=== PATIENT | female | born 1975 | race Caucasian/White ===

== ENCOUNTER 2017-11-04 10:32 | Inpatient (IN) | payer OTHER ==
[~2017-11-04] VITALS: Ht 167.6 cm; Wt 122.8 kg
[~2017-11-04 10:32] MED LIST: BACTRIM,SEPT1 TABLET PO; CELEXA20 MG PO; CHANTIX0.5 MG PO; CILOSTAZOL100 MG PO; GLUCOPHAGE500 MG PO; LISINOPRIL10 MG PO; NEURONTIN800 MG PO; NOVOLOG 10100 UNITS/ SC; OMEGA 3 500 SO1 EACH PO; PERCOCET 5/31 TABLET PO; PRAVACHOL40 MG PO; ROBAXIN500 MG PO; TRESIBA FL100 UNIT/1 SC; ULTRAM50 MG PO; VENTOLIN HFA18 GM IH; XARELTO20 MG PO
[2017-11-04 11:29] VITALS: BP 148/70
[2017-11-04 16:30] LABS: HEMATOCRIT 39.9 % (36.0-46.0); HEMOGLOBIN 12.5 G/DL (11.9-15.5); MCH 25.8 PG (29.0-34.0); MCHC 31.3 G/DL (30.0-36.0); MCV 82.4 FL (83-99); PLATELET COUNT 310 K/uL (156-360); RBC DIS.WIDTH-CV 16.1 % (11.8-14.6); RBC DIS.WIDTH-SD 48.2 % (39-53); RED BLOOD COUNT 4.84 M/uL (3.80-5.20); WHITE BLOOD COUNT 16.2 K/uL (4.1-10.2)
[2017-11-04 16:52] LABS: CHLORIDE 106 MEQ/L (99-109); CREATININE 0.4 MG/DL (0.6-1.3); GFR ESTIMATE (CALCULATED) > 59 mL/min/; GLUCOSE 142 mg/dL (70-99); POTASSIUM 3.9 MEQ/L (3.7-5.4); SODIUM 136 MEQ/L (136-147); TROP-I INTERPRETATION NEGATIVE; TROPONIN-I < 0.01 ng/mL (0.0-0.30); UREA NITROGEN (BUN) 12 mg/dL (9-23)
[2017-11-04 18:29] VITALS: BP 140/80
[2017-11-04 20:15] VITALS: BP 188/84
[2017-11-05] VITALS (8 sets, daily range): BP systolic 119–195; BP diastolic 58–87
[2017-11-05 05:33] LABS: HEMOGLOBIN 12.7 G/DL (11.9-15.5); MCHC 31.8 G/DL (30.0-36.0); MCV 81.8 FL (83-99); PLATELET COUNT 317 K/uL (156-360); RBC DIS.WIDTH-CV 16.1 % (11.8-14.6); RBC DIS.WIDTH-SD 47.6 % (39-53); RED BLOOD COUNT 4.89 M/uL (3.80-5.20); WHITE BLOOD COUNT 17.3 K/uL (4.1-10.2)
[2017-11-05 05:49] LABS: TROP-I INTERPRETATION NEGATIVE; TROPONIN-I < 0.01 ng/mL (0.0-0.30)
[2017-11-05 06:10] LABS: CHLORIDE 101 MEQ/L (99-109); CREATININE 0.4 MG/DL (0.6-1.3); GFR ESTIMATE (CALCULATED) > 59 mL/min/; GLUCOSE 123 mg/dL (70-99); POTASSIUM 4.1 MEQ/L (3.7-5.4); SODIUM 135 MEQ/L (136-147); UREA NITROGEN (BUN) 11 mg/dL (9-23)
[2017-11-06] VITALS (8 sets, daily range): BP systolic 133–186; BP diastolic 60–82
[2017-11-07 04:06] VITALS: BP 146/68
[2017-11-07 07:39] VITALS: BP 144/69
[2017-11-07 10:53] VITALS: BP 130/59
[2017-11-07 16:43] VITALS: BP 102/55
[2017-11-07 19:28] VITALS: BP 113/53
[2017-11-07 23:15] VITALS: BP 143/65
[2017-11-08 04:07] VITALS: BP 136/69
[2017-11-08 07:59] VITALS: BP 157/71
[2017-11-08 11:31] VITALS: BP 129/64
[2017-11-08 15:22] VITALS: BP 117/53
[2017-11-08 23:23] VITALS: BP 154/67
[2017-11-09 07:46] VITALS: BP 152/68
[2017-11-09] MEDS ORDERED: OXYCODONE-APAP1 EACH PO (12:53)
== END 2017-11-09 15:20 | DRG 240 ==
LOC: SDC 10:32 → ENRESERV 16:02 → 2SOUTH 16:03 → 3EAST 16:03 → ENRESERV 16:13 → SDC 16:59 → 3EAST 17:45
PROVIDERS: Surgery
PROC: 0Y6D0Z3 Detachment at Left Upper Leg, Low, Open Approach (ICD-10-PCS; principal; 2017-11-04)
DX: E11.51 Type 2 diabetes mellitus with diabetic peripheral angiopathy without gangrene (principal); I70.222 Atherosclerosis of native arteries of extremities with rest pain, left leg; L89.150 Pressure ulcer of sacral region, unstageable; E78.5 Hyperlipidemia, unspecified; F17.210 Nicotine dependence, cigarettes, uncomplicated; G89.4 Chronic pain syndrome; I10 Essential (primary) hypertension; M19.90 Unspecified osteoarthritis, unspecified site; E66.01 Morbid (severe) obesity due to excess calories; Z85.048 Personal history of other malignant neoplasm of rectum, rectosigmoid junction, and anus; Z68.41 Body mass index [BMI] 40.0-44.9, adult
CPT/HCPCS: 80048; 82948; 84484; 85027; 86850; 86900; 86901; 88304; 88307; 93005; 94760; 94799; 97530 GP; 99202; J0330; J0360; J0690; J1170; J1650; J1815; J2250; J2405; J3010; J7120

== ENCOUNTER 2017-12-21 12:19 | Inpatient (IN) | payer OTHER ==
[~2017-12-21] VITALS: Ht 167.6 cm; Wt 113.6 kg
[~2017-12-21 12:19] MED LIST changes: -CELEXA20 MG PO; +CELEXA40 MG PO; -LISINOPRIL10 MG PO; +NEURONTIN400 MG PO; -NEURONTIN800 MG PO; +OXYCODONE-APAP1 EACH PO; +PRINIVIL5 MG PO
[2017-12-21 12:46] LABS: BASOPHIL (%) 0.3 % (0-1); EOSINOPHIL (%) 2.2 % (0-5); EOSINOPHIL COUNT 0.3 K/uL (0-0.3); HEMATOCRIT 38.6 % (36.0-46.0); HEMOGLOBIN 12.4 G/DL (11.9-15.5); IMMATURE GRANULOCYTE (%) 0.5 % (0.0-0.7); LYMPHOCYTE (%) 23.3 % (15-42); LYMPHOCYTE COUNT 3.5 K/uL (1.0-2.8); MCH 25.5 PG (29.0-34.0); MCHC 32.1 G/DL (30.0-36.0); MCV 79.3 FL (83-99); MONOCYTE (%) 7.8 % (3-12); MONOCYTE COUNT 1.2 K/uL (0-0.8); NEUTROPHIL (%) 65.9 % (45-76); NEUTROPHIL COUNT 9.9 K/uL (1.8-6.4); PLATELET COUNT 388 K/uL (156-360); RBC DIS.WIDTH-CV 16.1 % (11.8-14.6); RED BLOOD COUNT 4.87 M/uL (3.80-5.20)
[2017-12-21 12:59] LABS: CHLORIDE 101 mEq/L (99-109); POTASSIUM 4.4 mEq/L (3.7-5.4); SODIUM 137 mEq/L (136-147)
[2017-12-21 13:01] LABS: GLUCOSE 165 mg/dL (70-99)
[2017-12-21 13:04] LABS: CREATININE 0.7 mg/dL (0.6-1.3); GFR ESTIMATE (CALCULATED) > 59 mL/min/
[2017-12-21 13:05] LABS: UREA NITROGEN (BUN) 13 mg/dL (9-23)
[2017-12-21] MEDS ORDERED: NOVOLOG PE100 UNITS/ SC (14:41)
[2017-12-21] MEDS ORDERED: PERCOCET 5/31 TABLET PO (14:41)
[2017-12-21 19:17] VITALS: BP 151/81
[2017-12-21 23:03] VITALS: BP 146/69
[2017-12-22 03:35] VITALS: BP 153/76
[2017-12-22 06:31] LABS: HEMATOCRIT 35.5 % (36.0-46.0); MCV 80.7 FL (83-99); PLATELET COUNT 345 K/uL (156-360); RBC DIS.WIDTH-CV 16.4 % (11.8-14.6); RBC DIS.WIDTH-SD 47.8 % (39-53); WHITE BLOOD COUNT 11.6 K/uL (4.1-10.2)
[2017-12-22 06:50] LABS: CHLORIDE 108 MEQ/L (99-109); CREATININE 0.3 MG/DL (0.6-1.3); GFR ESTIMATE (CALCULATED) > 59 mL/min/; POTASSIUM 4.1 MEQ/L (3.7-5.4); SODIUM 141 MEQ/L (136-147); UREA NITROGEN (BUN) 6 mg/dL (9-23)
[2017-12-22 06:51] LABS: GLUCOSE 91 mg/dL (70-99)
[2017-12-22 07:15] VITALS: BP 177/82
[2017-12-22 11:47] VITALS: BP 189/82
[2017-12-22 17:08] LABS: HEMATOCRIT 34.9 % (36.0-46.0); HEMOGLOBIN 10.9 G/DL (11.9-15.5); MCH 25.2 PG (29.0-34.0); MCHC 31.2 G/DL (30.0-36.0); MCV 80.8 FL (83-99); NRBC (%) 0.7 /100 WBC (0-0); PLATELET COUNT 332 K/uL (156-360); RBC DIS.WIDTH-CV 16.3 % (11.8-14.6); RBC DIS.WIDTH-SD 47.2 % (39-53); RED BLOOD COUNT 4.32 M/uL (3.80-5.20)
[2017-12-22 17:28] LABS: TROP-I INTERPRETATION NEGATIVE; TROPONIN-I 0.03 ng/mL (0.0-0.30)
[2017-12-22 17:33] LABS: CHLORIDE 104 MEQ/L (99-109); CREATININE 0.3 MG/DL (0.6-1.3); GFR ESTIMATE (CALCULATED) > 59 mL/min/; POTASSIUM 3.9 MEQ/L (3.7-5.4); SODIUM 136 MEQ/L (136-147); UREA NITROGEN (BUN) 5 mg/dL (9-23)
[2017-12-22 18:13] LABS: GLUCOSE 117 mg/dL (70-99)
[2017-12-22 19:23] VITALS: BP 143/63
[2017-12-22 23:32] VITALS: BP 137/62
[2017-12-23 05:15] VITALS: BP 142/64
[2017-12-23 06:27] LABS: BASOPHIL (%) 0.2 % (0-1); EOSINOPHIL (%) 0.6 % (0-5); EOSINOPHIL COUNT 0.1 K/uL (0-0.3); HEMATOCRIT 33.7 % (36.0-46.0); HEMOGLOBIN 10.8 G/DL (11.9-15.5); IMMATURE GRANULOCYTE (%) 0.4 % (0.0-0.7); LYMPHOCYTE (%) 12.3 % (15-42); LYMPHOCYTE COUNT 1.7 K/uL (1.0-2.8); MCH 25.4 PG (29.0-34.0); MCV 79.1 FL (83-99); MONOCYTE (%) 8.4 % (3-12); MONOCYTE COUNT 1.2 K/uL (0-0.8); NEUTROPHIL (%) 78.1 % (45-76); NEUTROPHIL COUNT 10.9 K/uL (1.8-6.4); PLATELET COUNT 345 K/uL (156-360); RBC DIS.WIDTH-CV 15.9 % (11.8-14.6); RBC DIS.WIDTH-SD 45.9 % (39-53); RED BLOOD COUNT 4.26 M/uL (3.80-5.20); WHITE BLOOD COUNT 13.9 K/uL (4.1-10.2)
[2017-12-23 06:53] LABS: CHLORIDE 101 MEQ/L (99-109); CREATININE 0.3 MG/DL (0.6-1.3); GFR ESTIMATE (CALCULATED) > 59 mL/min/; GLUCOSE 170 mg/dL (70-99); POTASSIUM 4.1 MEQ/L (3.7-5.4); SODIUM 136 MEQ/L (136-147); TROP-I INTERPRETATION NEGATIVE; TROPONIN-I 0.02 ng/mL (0.0-0.30); UREA NITROGEN (BUN) 4 mg/dL (9-23)
[2017-12-23 07:58] VITALS: BP 159/72
[2017-12-23 07:59] VITALS: BP 136/62
[2017-12-23 09:09] LABS: HEMOGLOBIN A1c (GLYCOHEMOGLOB) 8.2 % (Below 5.7)
[2017-12-23 11:12] VITALS: BP 119/58
[2017-12-23 15:53] VITALS: BP 130/60
[2017-12-23 19:56] LABS: HEMATOCRIT 35.1 % (36.0-46.0); HEMOGLOBIN 10.9 G/DL (11.9-15.5); MCH 24.4 PG (29.0-34.0); MCHC 31.1 G/DL (30.0-36.0); MCV 78.5 FL (83-99); PLATELET COUNT 347 K/uL (156-360); RBC DIS.WIDTH-CV 15.8 % (11.8-14.6); RBC DIS.WIDTH-SD 45.2 % (39-53); RED BLOOD COUNT 4.47 M/uL (3.80-5.20); WHITE BLOOD COUNT 12.9 K/uL (4.1-10.2)
[2017-12-23 19:58] VITALS: BP 120/58
[2017-12-24] VITALS (7 sets, daily range): BP systolic 104–164; BP diastolic 49–76
[2017-12-24 06:02] LABS: BASOPHIL (%) 0.3 % (0-1); EOSINOPHIL (%) 2.3 % (0-5); EOSINOPHIL COUNT 0.2 K/uL (0-0.3); HEMATOCRIT 35.3 % (36.0-46.0); IMMATURE GRANULOCYTE (%) 0.2 % (0.0-0.7); LYMPHOCYTE (%) 19.2 % (15-42); MCH 24.8 PG (29.0-34.0); MCHC 31.2 G/DL (30.0-36.0); MCV 79.5 FL (83-99); MONOCYTE (%) 10.2 % (3-12); NEUTROPHIL (%) 67.8 % (45-76); NEUTROPHIL COUNT 6.9 K/uL (1.8-6.4); PLATELET COUNT 350 K/uL (156-360); RBC DIS.WIDTH-CV 15.9 % (11.8-14.6); RBC DIS.WIDTH-SD 45.5 % (39-53); RED BLOOD COUNT 4.44 M/uL (3.80-5.20); WHITE BLOOD COUNT 10.1 K/uL (4.1-10.2)
[2017-12-24 06:29] LABS: CHLORIDE 104 MEQ/L (99-109); CREATININE 0.3 MG/DL (0.6-1.3); GFR ESTIMATE (CALCULATED) > 59 mL/min/; POTASSIUM 3.8 MEQ/L (3.7-5.4); SODIUM 142 MEQ/L (136-147); UREA NITROGEN (BUN) 4 mg/dL (9-23)
[2017-12-24 06:34] LABS: GLUCOSE 94 mg/dL (70-99)
[2017-12-25 06:40] LABS: BASOPHIL (%) 0.6 % (0-1); BASOPHIL COUNT 0.1 K/uL (0-0.1); EOSINOPHIL COUNT 0.3 K/uL (0-0.3); HEMATOCRIT 34.6 % (36.0-46.0); HEMOGLOBIN 10.6 G/DL (11.9-15.5); IMMATURE GRANULOCYTE (%) 0.3 % (0.0-0.7); LYMPHOCYTE (%) 26.3 % (15-42); LYMPHOCYTE COUNT 2.4 K/uL (1.0-2.8); MCH 24.3 PG (29.0-34.0); MCHC 30.6 G/DL (30.0-36.0); MCV 79.4 FL (83-99); MONOCYTE (%) 9.5 % (3-12); MONOCYTE COUNT 0.9 K/uL (0-0.8); NEUTROPHIL (%) 60.3 % (45-76); NEUTROPHIL COUNT 5.6 K/uL (1.8-6.4); PLATELET COUNT 363 K/uL (156-360); RBC DIS.WIDTH-CV 15.8 % (11.8-14.6); RBC DIS.WIDTH-SD 45.6 % (39-53); RED BLOOD COUNT 4.36 M/uL (3.80-5.20); WHITE BLOOD COUNT 9.3 K/uL (4.1-10.2)
[2017-12-25 07:04] LABS: ALBUMIN 3.2 G/DL (3.2-4.8); ALKALINE PHOSPHATASE 84 IU/L (3-129); ALT (GPT) 7 IU/L (3-49); AST (GOT) 11 IU/L (2-34); CHLORIDE 103 MEQ/L (99-109); CREATININE 0.3 MG/DL (0.6-1.3); GFR ESTIMATE (CALCULATED) > 59 mL/min/; GLUCOSE 134 mg/dL (70-99); POTASSIUM 3.8 MEQ/L (3.7-5.4); SODIUM 140 MEQ/L (136-147); TOTAL BILIRUBIN 0.3 MG/DL (0.0-1.0); UREA NITROGEN (BUN) 8 mg/dL (9-23)
[2017-12-25 07:30] VITALS: BP 128/58
[2017-12-25 15:40] VITALS: BP 158/71
[2017-12-25 22:53] VITALS: BP 147/56
[2017-12-26 06:17] LABS: HEMATOCRIT 34.8 % (36.0-46.0); HEMOGLOBIN 10.6 G/DL (11.9-15.5); MCH 24.2 PG (29.0-34.0); MCHC 30.5 G/DL (30.0-36.0); MCV 79.5 FL (83-99); PLATELET COUNT 373 K/uL (156-360); RBC DIS.WIDTH-CV 15.8 % (11.8-14.6); RBC DIS.WIDTH-SD 45.4 % (39-53); RED BLOOD COUNT 4.38 M/uL (3.80-5.20); WHITE BLOOD COUNT 10.4 K/uL (4.1-10.2)
[2017-12-26 06:41] LABS: CHLORIDE 104 MEQ/L (99-109); CREATININE 0.3 MG/DL (0.6-1.3); GFR ESTIMATE (CALCULATED) > 59 mL/min/; GLUCOSE 160 mg/dL (70-99); SODIUM 139 MEQ/L (136-147); UREA NITROGEN (BUN) 9 mg/dL (9-23)
[2017-12-26 07:10] VITALS: BP 168/77
[2017-12-26 15:45] VITALS: BP 176/83
[2017-12-26 17:22] VITALS: BP 139/61
[2017-12-26 22:54] VITALS: BP 160/68
[2017-12-27 06:51] VITALS: BP 141/73
[2017-12-27] MEDS ORDERED: LISINOPRIL10 MG PO (10:55)
[2017-12-27] MEDS ORDERED: AMLODIPINE BESY10 MG PO (10:57)
[2017-12-27] MEDS ORDERED: AUGMENTIN875 MG PO (13:21)
[2017-12-28 00:47] VITALS: BP 150/70
[2017-12-28 07:20] VITALS: BP 145/68
[2017-12-28 08:47] VITALS: BP 150/70
== END 2017-12-28 10:24 | disposition home health service (06) | DRG 500 ==
LOC: EME 12:19 → EDOF 14:55 → 5EAST 14:55 → ENRESERV 15:01 → 5EAST 16:11 → ENPENDDIS 12-28 → 5EAST 12-28 10:24
PROVIDERS: Hospitalist; Internal Medicine; Physician Assistant; Surgery
PROC: 0KBR0ZZ Excision of Left Upper Leg Muscle, Open Approach (ICD-10-PCS; principal; 2017-12-22)
DX: T87.44 Infection of amputation stump, left lower extremity (principal); A41.9 Sepsis, unspecified organism; L03.116 Cellulitis of left lower limb; L02.416 Cutaneous abscess of left lower limb; B96.7 Clostridium perfringens [C. perfringens] as the cause of diseases classified elsewhere; T87.81 Dehiscence of amputation stump; Y83.5 Amputation of limb(s) as the cause of abnormal reaction of the patient, or of later complication, without mention of misadventure at the time of the procedure; L76.21 Postprocedural hemorrhage of skin and subcutaneous tissue following a dermatologic procedure; Y84.8 Other medical procedures as the cause of abnormal reaction of the patient, or of later complication, without mention of misadventure at the time of the procedure; L89.309 Pressure ulcer of unspecified buttock, unspecified stage; L30.8 Other specified dermatitis; L03.317 Cellulitis of buttock; I10 Essential (primary) hypertension; E11.51 Type 2 diabetes mellitus with diabetic peripheral angiopathy without gangrene; E78.5 Hyperlipidemia, unspecified; G89.4 Chronic pain syndrome; K59.00 Constipation, unspecified; F32.9 Major depressive disorder, single episode, unspecified; E66.9 Obesity, unspecified; Z68.41 Body mass index [BMI] 40.0-44.9, adult; F17.200 Nicotine dependence, unspecified, uncomplicated; Z89.612 Acquired absence of left leg above knee; Z85.048 Personal history of other malignant neoplasm of rectum, rectosigmoid junction, and anus; Z86.718 Personal history of other venous thrombosis and embolism; Z79.01 Long term (current) use of anticoagulants; Z79.4 Long term (current) use of insulin
CPT/HCPCS: 71046; 73560; 76937; 80048; 80048 91; 80053; 80202; 81003; 82948; 83036; 83605; 84484; 85025; 85027; 86850; 86900; 86901; 87040; 87070; 87075; 87076; 87205; 99281; 99285; A6214; A6260; J0131; J0330; J0690; J1170; J1815; J2250; J2543; J2710; J3010; J3370; J7030; J7040; J7050; J7643; S0020

== ENCOUNTER 2018-01-07 13:23 | Day surgery (SDC) | payer OTHER ==
[~2018-01-07] VITALS: Ht 167.6 cm; Wt 113.4 kg
[~2018-01-07 13:23] MED LIST changes: +AMLODIPINE BESY10 MG PO; +AUGMENTIN875 MG PO; +LISINOPRIL10 MG PO; +NOVOLOG PE100 UNITS/ SC
[2018-01-07 14:37] VITALS: BP 147/61
[2018-01-07] MEDS ORDERED: NORCO 10/3251 TABLET PO (18:38)
[2018-01-07 20:20] VITALS: BP 170/79
[2018-01-07 20:48] VITALS: BP 180/81
== END 2018-01-07 21:00 | disposition home or self-care (01) ==
LOC: SDC 13:23
PROVIDERS: Surgery
PROC: 0Y6D0Z3 Detachment at Left Upper Leg, Low, Open Approach (ICD-10-PCS; principal; 2018-01-07)
DX: T87.81 Dehiscence of amputation stump (principal); T87.44 Infection of amputation stump, left lower extremity; I70.222 Atherosclerosis of native arteries of extremities with rest pain, left leg; E11.69 Type 2 diabetes mellitus with other specified complication; Z79.4 Long term (current) use of insulin; I10 Essential (primary) hypertension; E78.5 Hyperlipidemia, unspecified; E66.01 Morbid (severe) obesity due to excess calories; Z68.41 Body mass index [BMI] 40.0-44.9, adult; F17.200 Nicotine dependence, unspecified, uncomplicated; Z85.048 Personal history of other malignant neoplasm of rectum, rectosigmoid junction, and anus; M19.90 Unspecified osteoarthritis, unspecified site; Z79.01 Long term (current) use of anticoagulants; Z82.49 Family history of ischemic heart disease and other diseases of the circulatory system
CPT/HCPCS: 82948; J0131; J0690; J1100; J1170; J2250

== ENCOUNTER 2018-02-06 06:42 | Inpatient (IN) | payer OTHER ==
[~2018-02-06] VITALS: Ht 167.6 cm; Wt 66.5 kg
[~2018-02-06 06:42] MED LIST changes: +NORCO 10/3251 TABLET PO
[2018-02-06 07:44] LABS: INTER. NORMALIZED RATIO 1.6
[2018-02-06 07:50] LABS: BASOPHIL (%) 0.1 % (0-1); EOSINOPHIL (%) 0.1 % (0-5); HEMATOCRIT 32.8 % (36.0-46.0); HEMOGLOBIN 10.4 G/DL (11.9-15.5); IMMATURE GRANULOCYTE (%) 0.6 % (0.0-0.7); LYMPHOCYTE (%) 7.8 % (15-42); LYMPHOCYTE COUNT 1.8 K/uL (1.0-2.8); MCH 23.4 PG (29.0-34.0); MCHC 31.7 G/DL (30.0-36.0); MONOCYTE (%) 8.2 % (3-12); MONOCYTE COUNT 1.9 K/uL (0-0.8); NEUTROPHIL (%) 83.2 % (45-76); NEUTROPHIL COUNT 18.9 K/uL (1.8-6.4); RBC DIS.WIDTH-CV 17.2 % (11.8-14.6); RBC DIS.WIDTH-SD 45.3 % (39-53); RED BLOOD COUNT 4.44 M/uL (3.80-5.20); WHITE BLOOD COUNT 22.7 K/uL (4.1-10.2)
[2018-02-06 07:51] LABS: MCV 73.9 FL (83-99)
[2018-02-06 07:52] LABS: PLATELET COUNT 589 K/uL (156-360)
[2018-02-06 08:06] LABS: CHLORIDE 94 MEQ/L (99-109); POTASSIUM 3.9 MEQ/L (3.7-5.4); SODIUM 133 MEQ/L (136-147)
[2018-02-06 08:11] LABS: CREATININE 0.3 MG/DL (0.6-1.3); GFR ESTIMATE (CALCULATED) > 59 mL/min/; GLUCOSE 159 mg/dL (70-99); UREA NITROGEN (BUN) 16 mg/dL (9-23)
[2018-02-06] MEDS ORDERED: LYRICA25 MG PO (09:03)
[2018-02-06] MEDS ORDERED: ENDOCET 5-3251 EACH PO (09:17)
[2018-02-06 10:31] VITALS: BP 167/73
[2018-02-06 15:45] VITALS: BP 145/65
[2018-02-06 19:43] VITALS: BP 172/70
[2018-02-07] VITALS (8 sets, daily range): BP systolic 143–166; BP diastolic 60–73
[2018-02-07 06:39] LABS: ALBUMIN 2.7 G/DL (3.2-4.8); ALKALINE PHOSPHATASE 212 IU/L (3-129); ALT (GPT) 11 IU/L (3-49); AST (GOT) 18 IU/L (2-34); CHLORIDE 100 MEQ/L (99-109); CREATININE 0.2 MG/DL (0.6-1.3); DIRECT BILIRUBIN 0.2 mg/dL (0.0-0.3); GFR ESTIMATE (CALCULATED) > 59 mL/min/; POTASSIUM 3.7 MEQ/L (3.7-5.4); SODIUM 136 MEQ/L (136-147); TOTAL BILIRUBIN 0.5 MG/DL (0.0-1.0); TOTAL PROTEIN 5.7 G/DL (6.4-8.3); UREA NITROGEN (BUN) 7 mg/dL (9-23)
[2018-02-07 06:41] LABS: INTER. NORMALIZED RATIO 1.6
[2018-02-07 06:42] LABS: GLUCOSE 114 mg/dL (70-99)
[2018-02-07 06:43] LABS: HEMATOCRIT 29.7 % (36.0-46.0); HEMOGLOBIN 9.4 G/DL (11.9-15.5); MCH 23.6 PG (29.0-34.0); MCHC 31.6 G/DL (30.0-36.0); MCV 74.6 FL (83-99); PLATELET COUNT 548 K/uL (156-360); PTT 29.5 SEC (25-37); RBC DIS.WIDTH-CV 17.2 % (11.8-14.6); RBC DIS.WIDTH-SD 46.4 % (39-53); RED BLOOD COUNT 3.98 M/uL (3.80-5.20)
[2018-02-07 15:35] LABS: IRON 10 MCG/DL (35-150); TRANSFERRIN (TIBC) 176.1 mg/dL (215-380); TRANSFERRIN SATUR. 6 % (20-55)
[2018-02-07 15:51] LABS: FERRITIN 277 NG/ML (10-291)
[2018-02-07 20:51] LABS: TROP-I INTERPRETATION NEGATIVE; TROPONIN-I < 0.01 ng/mL (0.0-0.30)
[2018-02-07 20:54] LABS: CHLORIDE 105 MEQ/L (99-109); CREATININE 0.2 MG/DL (0.6-1.3); GFR ESTIMATE (CALCULATED) > 59 mL/min/; GLUCOSE 149 mg/dL (70-99); POTASSIUM 3.7 MEQ/L (3.7-5.4); SODIUM 137 MEQ/L (136-147); UREA NITROGEN (BUN) 6 mg/dL (9-23)
[2018-02-07 21:30] LABS: WHITE BLOOD COUNT 19.6 K/uL (4.1-10.2)
[2018-02-07 21:31] LABS: MCH 23.7 PG (29.0-34.0); MCV 76.3 FL (83-99); RED BLOOD COUNT 3.8 M/uL (3.80-5.20)
[2018-02-07 21:32] LABS: PLATELET COUNT 496 K/uL (156-360); RBC DIS.WIDTH-CV 17.3 % (11.8-14.6); RBC DIS.WIDTH-SD 47.9 % (39-53)
[2018-02-08 03:13] VITALS: BP 152/71
[2018-02-08 06:11] LABS: BASOPHIL (%) 0.1 % (0-1); EOSINOPHIL (%) 0.1 % (0-5); HEMATOCRIT 27.7 % (36.0-46.0); HEMOGLOBIN 8.5 G/DL (11.9-15.5); IMMATURE GRANULOCYTE (%) 0.7 % (0.0-0.7); LYMPHOCYTE (%) 6.3 % (15-42); LYMPHOCYTE COUNT 1.3 K/uL (1.0-2.8); MCH 23.2 PG (29.0-34.0); MCHC 30.7 G/DL (30.0-36.0); MCV 75.5 FL (83-99); MONOCYTE (%) 7.1 % (3-12); MONOCYTE COUNT 1.5 K/uL (0-0.8); NEUTROPHIL (%) 85.7 % (45-76); NEUTROPHIL COUNT 17.8 K/uL (1.8-6.4); PLATELET COUNT 528 K/uL (156-360); RBC DIS.WIDTH-CV 17.2 % (11.8-14.6); RBC DIS.WIDTH-SD 47.6 % (39-53); RED BLOOD COUNT 3.67 M/uL (3.80-5.20); WHITE BLOOD COUNT 20.8 K/uL (4.1-10.2)
[2018-02-08 06:31] LABS: CREATININE 0.5 MG/DL (0.6-1.3); GLUCOSE 122 mg/dL (70-99); UREA NITROGEN (BUN) 7 mg/dL (9-23)
[2018-02-08 06:32] LABS: CHLORIDE 106 MEQ/L (99-109); GFR ESTIMATE (CALCULATED) > 59 mL/min/; POTASSIUM 3.6 MEQ/L (3.7-5.4); SODIUM 141 MEQ/L (136-147)
[2018-02-08 06:33] LABS: TROP-I INTERPRETATION NEGATIVE; TROPONIN-I < 0.01 ng/mL (0.0-0.30)
[2018-02-08 07:19] VITALS: BP 166/74
[2018-02-08 11:33] VITALS: BP 150/72
[2018-02-08 15:07] VITALS: BP 125/58
[2018-02-08 19:17] VITALS: BP 135/65
[2018-02-09] VITALS (11 sets, daily range): BP systolic 131–143; BP diastolic 60–78
[2018-02-09 05:11] LABS: BASOPHIL (%) 0.1 % (0-1); EOSINOPHIL (%) 0.2 % (0-5); HEMATOCRIT 23.7 % (36.0-46.0); HEMOGLOBIN 7.2 G/DL (11.9-15.5); IMMATURE GRANULOCYTE (%) 0.7 % (0.0-0.7); LYMPHOCYTE (%) 8.5 % (15-42); LYMPHOCYTE COUNT 1.5 K/uL (1.0-2.8); MCH 23.5 PG (29.0-34.0); MCHC 30.4 G/DL (30.0-36.0); MCV 77.5 FL (83-99); MONOCYTE (%) 9.4 % (3-12); MONOCYTE COUNT 1.7 K/uL (0-0.8); NEUTROPHIL (%) 81.1 % (45-76); NEUTROPHIL COUNT 14.4 K/uL (1.8-6.4); PLATELET COUNT 421 K/uL (156-360); RBC DIS.WIDTH-CV 17.8 % (11.8-14.6); RBC DIS.WIDTH-SD 49.9 % (39-53); RED BLOOD COUNT 3.06 M/uL (3.80-5.20); WHITE BLOOD COUNT 17.8 K/uL (4.1-10.2)
[2018-02-09 06:32] LABS: CHLORIDE 109 MEQ/L (99-109); CREATININE 0.6 MG/DL (0.6-1.3); GFR ESTIMATE (CALCULATED) > 59 mL/min/; GLUCOSE 149 mg/dL (70-99); POTASSIUM 2.9 MEQ/L (3.7-5.4); SODIUM 141 MEQ/L (136-147); UREA NITROGEN (BUN) 7 mg/dL (9-23)
[2018-02-09 09:20] LABS: HEMATOCRIT 23.6 % (36.0-46.0); HEMOGLOBIN 7.4 G/DL (11.9-15.5); MCV 75.2 FL (83-99)
[2018-02-10] VITALS (7 sets, daily range): BP systolic 132–147; BP diastolic 60–90
[2018-02-10 05:32] LABS: BASOPHIL (%) 0.2 % (0-1); EOSINOPHIL (%) 0.7 % (0-5); EOSINOPHIL COUNT 0.1 K/uL (0-0.3); HEMATOCRIT 25.5 % (36.0-46.0); HEMOGLOBIN 7.8 G/DL (11.9-15.5); IMMATURE GRANULOCYTE (%) 1.5 % (0.0-0.7); LYMPHOCYTE (%) 8.2 % (15-42); LYMPHOCYTE COUNT 1.5 K/uL (1.0-2.8); MCH 23.3 PG (29.0-34.0); MCHC 30.6 G/DL (30.0-36.0); MCV 76.1 FL (83-99); MONOCYTE COUNT 1.3 K/uL (0-0.8); NEUTROPHIL (%) 82.4 % (45-76); NEUTROPHIL COUNT 15.2 K/uL (1.8-6.4); PLATELET COUNT 479 K/uL (156-360); RBC DIS.WIDTH-CV 17.4 % (11.8-14.6); RBC DIS.WIDTH-SD 47.6 % (39-53); RED BLOOD COUNT 3.35 M/uL (3.80-5.20); WHITE BLOOD COUNT 18.4 K/uL (4.1-10.2)
[2018-02-10 06:19] LABS: CHLORIDE 111 MEQ/L (99-109); CREATININE 0.8 MG/DL (0.6-1.3); GFR ESTIMATE (CALCULATED) > 59 mL/min/; GLUCOSE 191 mg/dL (70-99); POTASSIUM 3.5 MEQ/L (3.7-5.4); SODIUM 142 MEQ/L (136-147); UREA NITROGEN (BUN) 8 mg/dL (9-23)
[2018-02-10 16:41] LABS: COMMENTS - BLOOD GASES A+C+; DEVICE HFNC; O2 FLOW 15 L/MIN; O2 SATURATION (CALCULATED) 89.1 % (95-99); PCO2 33 mm Hg (35-45); PO2 50 mm Hg (80-100); SITE RR; pH 7.48 (7.35-7.45)
[2018-02-10 16:42] LABS: BASE EXCESS 1.2 mEq/L (-3 to +3); BICARBONATE 24.6 mEq/L (22-26); CARBOXY HGB 1.5 % (0-5)
[2018-02-10 20:02] LABS: COMMENTS - BLOOD GASES A+C+; DEVICE HHFNC; FI02 80 %; O2 FLOW 50 L/MIN; PCO2 34 mm Hg (35-45); PO2 66 mm Hg (80-100); SITE RR; pH 7.46 (7.35-7.45)
[2018-02-10 20:03] LABS: BASE EXCESS 0.5 mEq/L (-3 to +3); BICARBONATE 24.2 mEq/L (22-26); CARBOXY HGB 1.5 % (0-5); O2 SATURATION (CALCULATED) 93.8 % (95-99)
[2018-02-11 03:58] VITALS: BP 150/70
[2018-02-11 05:40] LABS: BASOPHIL (%) 0.1 % (0-1); EOSINOPHIL (%) 0 % (0-5); HEMATOCRIT 26.5 % (36.0-46.0); HEMOGLOBIN 8.2 G/DL (11.9-15.5); IMMATURE GRANULOCYTE (%) 1.9 % (0.0-0.7); LYMPHOCYTE COUNT 1.1 K/uL (1.0-2.8); MCH 23.4 PG (29.0-34.0); MCHC 30.9 G/DL (30.0-36.0); MCV 75.7 FL (83-99); MONOCYTE (%) 2.4 % (3-12); MONOCYTE COUNT 0.5 K/uL (0-0.8); NEUTROPHIL (%) 90.6 % (45-76); NEUTROPHIL COUNT 18.9 K/uL (1.8-6.4); PLATELET COUNT 515 K/uL (156-360); RBC DIS.WIDTH-CV 17.3 % (11.8-14.6); RBC DIS.WIDTH-SD 47.3 % (39-53); WHITE BLOOD COUNT 20.9 K/uL (4.1-10.2)
[2018-02-11 06:31] LABS: CHLORIDE 106 MEQ/L (99-109); CREATININE 0.8 MG/DL (0.6-1.3); GFR ESTIMATE (CALCULATED) > 59 mL/min/; GLUCOSE 261 mg/dL (70-99); POTASSIUM 3.6 MEQ/L (3.7-5.4); SODIUM 142 MEQ/L (136-147); UREA NITROGEN (BUN) 9 mg/dL (9-23)
[2018-02-11 07:39] VITALS: BP 180/83
[2018-02-11 09:41] VITALS: BP 155/70
[2018-02-11 10:43] VITALS: BP 153/70
[2018-02-11 20:00] VITALS: BP 138/63
[2018-02-11 23:55] VITALS: BP 138/63
[2018-02-12 04:00] VITALS: BP 134/64
[2018-02-12 08:10] VITALS: BP 164/74
[2018-02-12 09:20] LABS: HEMATOCRIT 26.5 % (36.0-46.0); MCH 23.5 PG (29.0-34.0); MCHC 30.2 G/DL (30.0-36.0); MCV 77.7 FL (83-99); PLATELET COUNT 581 K/uL (156-360); RBC DIS.WIDTH-CV 17.6 % (11.8-14.6); RED BLOOD COUNT 3.41 M/uL (3.80-5.20)
[2018-02-12 10:00] LABS: CHLORIDE 104 MEQ/L (99-109); CREATININE 0.9 MG/DL (0.6-1.3); GFR ESTIMATE (CALCULATED) > 59 mL/min/; GLUCOSE 177 mg/dL (70-99); POTASSIUM 3.5 MEQ/L (3.7-5.4); SODIUM 145 MEQ/L (136-147); UREA NITROGEN (BUN) 16 mg/dL (9-23)
[2018-02-12 11:44] VITALS: BP 143/64
[2018-02-12 17:31] VITALS: BP 156/78
[2018-02-12 20:00] VITALS: BP 143/66
[2018-02-12 23:55] VITALS: BP 153/74
[2018-02-13] VITALS (10 sets, daily range): BP systolic 103–158; BP diastolic 59–87
[2018-02-13 06:00] LABS: BASOPHIL (%) 0.2 % (0-1); EOSINOPHIL (%) 1.7 % (0-5); EOSINOPHIL COUNT 0.3 K/uL (0-0.3); HEMATOCRIT 24.1 % (36.0-46.0); HEMOGLOBIN 7.4 G/DL (11.9-15.5); IMMATURE GRANULOCYTE (%) 3.2 % (0.0-0.7); LYMPHOCYTE (%) 15.1 % (15-42); LYMPHOCYTE COUNT 2.7 K/uL (1.0-2.8); MCH 23.9 PG (29.0-34.0); MCHC 30.7 G/DL (30.0-36.0); MCV 77.7 FL (83-99); MONOCYTE (%) 7.3 % (3-12); MONOCYTE COUNT 1.3 K/uL (0-0.8); NEUTROPHIL (%) 72.5 % (45-76); NEUTROPHIL COUNT 12.8 K/uL (1.8-6.4); NRBC (%) 0.1 /100 WBC (0-0); PLATELET COUNT 553 K/uL (156-360); RBC DIS.WIDTH-CV 18.3 % (11.8-14.6); RBC DIS.WIDTH-SD 49.9 % (39-53); WHITE BLOOD COUNT 17.7 K/uL (4.1-10.2)
[2018-02-13 06:52] LABS: CHLORIDE 104 MEQ/L (99-109); GFR ESTIMATE (CALCULATED) > 59 mL/min/; POTASSIUM 3.3 MEQ/L (3.7-5.4); SODIUM 145 MEQ/L (136-147); UREA NITROGEN (BUN) 21 mg/dL (9-23)
[2018-02-13 06:54] LABS: GLUCOSE 84 mg/dL (70-99)
[2018-02-14 04:34] VITALS: BP 156/87
[2018-02-14 05:36] LABS: HEMOGLOBIN 8.1 G/DL (11.9-15.5); MCH 24.5 PG (29.0-34.0); MCHC 31.2 G/DL (30.0-36.0); MCV 78.8 FL (83-99); NRBC (%) 0.2 /100 WBC (0-0); PLATELET COUNT 547 K/uL (156-360); RBC DIS.WIDTH-CV 18.6 % (11.8-14.6); WHITE BLOOD COUNT 19.8 K/uL (4.1-10.2)
[2018-02-14 06:06] LABS: CHLORIDE 102 MEQ/L (99-109); CREATININE 0.9 MG/DL (0.6-1.3); GFR ESTIMATE (CALCULATED) > 59 mL/min/; GLUCOSE 126 mg/dL (70-99); SODIUM 144 MEQ/L (136-147); UREA NITROGEN (BUN) 21 mg/dL (9-23)
[2018-02-14 06:08] LABS: POTASSIUM 4.2 MEQ/L (3.7-5.4)
[2018-02-14 07:43] VITALS: BP 145/67
[2018-02-14 18:08] VITALS: BP 142/71
[2018-02-14 18:11] LABS: INTER. NORMALIZED RATIO 1.4
[2018-02-14 19:26] VITALS: BP 100/51
[2018-02-14 23:25] VITALS: BP 130/62
[2018-02-15 03:17] VITALS: BP 142/69
[2018-02-15 05:40] LABS: HEMATOCRIT 25.4 % (36.0-46.0); HEMOGLOBIN 7.6 G/DL (11.9-15.5); MCHC 29.9 G/DL (30.0-36.0); MCV 80.1 FL (83-99); NRBC (%) 0.1 /100 WBC (0-0); PLATELET COUNT 578 K/uL (156-360); RBC DIS.WIDTH-CV 19.3 % (11.8-14.6); RBC DIS.WIDTH-SD 52.2 % (39-53); RED BLOOD COUNT 3.17 M/uL (3.80-5.20); WHITE BLOOD COUNT 22.4 K/uL (4.1-10.2)
[2018-02-15 06:25] LABS: CHLORIDE 102 MEQ/L (99-109); CREATININE 0.8 MG/DL (0.6-1.3); GFR ESTIMATE (CALCULATED) > 59 mL/min/; GLUCOSE 100 mg/dL (70-99); MAGNESIUM 1.7 mg/dl (1.3-2.7); SODIUM 142 MEQ/L (136-147); UREA NITROGEN (BUN) 19 mg/dL (9-23)
[2018-02-15 09:00] VITALS: BP 169/75
[2018-02-15 16:00] VITALS: BP 127/59
[2018-02-15] MEDS ORDERED: ENDOCET 5-3251 EACH PO (16:01)
[2018-02-15] MEDS ORDERED: FERROUS SULFAT325 MG PO (16:01)
== END 2018-02-15 19:28 | DRG 498 ==
LOC: EME → EDBD 06:42 → EME 06:42 → 5SOUTH 09:10 → EDOF 09:10 → 4EAST 09:10 → ENRESERV 09:19 → 5SOUTH 10:05 → ENRESERV 02-07 09:22 → 5SOUTH 02-07 15:53 → ENRESERV 02-07 17:26 → CANRESERV 02-07 17:26 → 5SOUTH 02-07 19:37 → ENRESERV 02-07 20:06 → 4EAST 02-07 21:16 → ENPENDDIS 02-15 → 4EAST 02-15 10:49
PROVIDERS: Emergency Medicine; Hospitalist; Internal Medicine; Physician Assistant; Surgery
PROC: 0QBC0ZZ Excision of Left Lower Femur, Open Approach (ICD-10-PCS; principal; 2018-02-07)
PROC: 30233N1 Transfusion of Nonautologous Red Blood Cells into Peripheral Vein, Percutaneous Approach (ICD-10-PCS; principal; 2018-02-07)
PROC: 04CL0ZZ Extirpation of Matter from Left Femoral Artery, Open Approach (ICD-10-PCS; principal; 2018-02-07)
PROC: 04CJ0ZZ Extirpation of Matter from Left External Iliac Artery, Open Approach (ICD-10-PCS; principal; 2018-02-07)
PROC: 04CD0ZZ Extirpation of Matter from Left Common Iliac Artery, Open Approach (ICD-10-PCS; principal; 2018-02-07)
PROC: 0HD8XZZ Extraction of Buttock Skin, External Approach (ICD-10-PCS; 2018-02-14)
DX: T87.44 Infection of amputation stump, left lower extremity (principal); T81.4XXA Infection following a procedure, initial encounter; T87.81 Dehiscence of amputation stump; A41.9 Sepsis, unspecified organism; L03.116 Cellulitis of left lower limb; Y83.5 Amputation of limb(s) as the cause of abnormal reaction of the patient, or of later complication, without mention of misadventure at the time of the procedure; J81.0 Acute pulmonary edema; J96.01 Acute respiratory failure with hypoxia; E11.52 Type 2 diabetes mellitus with diabetic peripheral angiopathy with gangrene; I70.262 Atherosclerosis of native arteries of extremities with gangrene, left leg; I74.3 Embolism and thrombosis of arteries of the lower extremities; I74.5 Embolism and thrombosis of iliac artery; T82.868A Thrombosis due to vascular prosthetic devices, implants and grafts, initial encounter; L89.150 Pressure ulcer of sacral region, unstageable; L89.310 Pressure ulcer of right buttock, unstageable; L89.893 Pressure ulcer of other site, stage 3; D62 Acute posthemorrhagic anemia; J44.9 Chronic obstructive pulmonary disease, unspecified; G89.18 Other acute postprocedural pain; D72.828 Other elevated white blood cell count; T38.0X5A Adverse effect of glucocorticoids and synthetic analogues, initial encounter; D68.9 Coagulation defect, unspecified; I10 Essential (primary) hypertension; E87.6 Hypokalemia; D50.9 Iron deficiency anemia, unspecified; L30.8 Other specified dermatitis; G89.4 Chronic pain syndrome; M54.5 Low back pain; E87.70 Fluid overload, unspecified; G47.30 Sleep apnea, unspecified; E66.9 Obesity, unspecified; Z68.38 Body mass index [BMI] 38.0-38.9, adult; E78.5 Hyperlipidemia, unspecified; F17.210 Nicotine dependence, cigarettes, uncomplicated; Z89.612 Acquired absence of left leg above knee; Z85.048 Personal history of other malignant neoplasm of rectum, rectosigmoid junction, and anus; Z79.4 Long term (current) use of insulin; Z98.891 History of uterine scar from previous surgery; Z92.21 Personal history of antineoplastic chemotherapy; Z92.3 Personal history of irradiation
CPT/HCPCS: 36600; 71045; 80048; 80048 91; 80053; 80202; 81003; 82248; 82728; 82948; 83540; 83605; 83735; 83880; 84466; 84484; 85014; 85018; 85025; 85027; 85610; 85730; 86850; 86900; 86901; 86920; 87040; 87070; 87075; 87205; 93306; 94640; 94760; 94799; 97530 GP; 99281; 99285; A6214; C1725; C1757; C1894; J1170; J1644; J1650; J1756; J1815; J1940; J2270; J2405; J2543; J2710; J2920; J2930; J3010; J3370; J7030; J7040; J7050; J7512; J7643; P9016; P9040; S0020

== ENCOUNTER 2018-02-21 16:20 | Emergency (ER) | payer OTHER ==
[~2018-02-21] VITALS: Ht 198.1 cm; Wt 110.0 kg
[~2018-02-21 16:20] MED LIST changes: +ENDOCET 5-3251 EACH PO; +FERROUS SULFAT325 MG PO; +LYRICA25 MG PO
[2018-02-21 17:32] LABS: HEMATOCRIT 21.2 % (36.0-46.0); HEMOGLOBIN 6.5 G/DL (11.9-15.5); MCH 24.5 PG (29.0-34.0); MCHC 30.7 G/DL (30.0-36.0); PLATELET COUNT 608 K/uL (156-360); RBC DIS.WIDTH-SD 56.7 % (39-53); RED BLOOD COUNT 2.65 M/uL (3.80-5.20); WHITE BLOOD COUNT 22.4 K/uL (4.1-10.2)
[2018-02-21 17:35] LABS: CHLORIDE 103 mEq/L (99-109); INTER. NORMALIZED RATIO 1.6; POTASSIUM 4.2 mEq/L (3.7-5.4); SODIUM 138 mEq/L (136-147)
[2018-02-21 17:36] LABS: GLUCOSE 99 mg/dL (70-99)
[2018-02-21 17:38] LABS: PTT 30.8 SEC (25-37)
[2018-02-21 17:40] LABS: GFR ESTIMATE (CALCULATED) > 59 mL/min/
[2018-02-21 17:41] LABS: UREA NITROGEN (BUN) 14 mg/dL (9-23)
[2018-02-21 20:32] VITALS: BP 118/58
== END 2018-02-21 20:15 | disposition short-term general hospital (02) ==
LOC: EME 16:20
PROVIDERS: Emergency Medicine
DX: T87.89 Other complications of amputation stump (principal); D64.9 Anemia, unspecified; T81.4XXA Infection following a procedure, initial encounter; L03.116 Cellulitis of left lower limb; E11.9 Type 2 diabetes mellitus without complications; F17.200 Nicotine dependence, unspecified, uncomplicated; Z79.4 Long term (current) use of insulin; Z85.9 Personal history of malignant neoplasm, unspecified; Z89.612 Acquired absence of left leg above knee
CPT/HCPCS: 80048; 81003; 83605; 85027; 85610; 85730; 86850; 86900; 86901; 86920; 87040; 99281; 99285; J2270; J2405; J2543; J3370; J7030